=== PATIENT | female | born 1985 | race Caucasian/White ===

== ENCOUNTER 2017-10-04 22:00 | Emergency (ER) | payer BC, MEDICAID, OTHER ==
[~2017-10-04] VITALS: Ht 165.1 cm; Wt 95.0 kg
[~2017-10-04 22:00] MED LIST: SUCR1S PO; Z.0.NO CURRENT MEDS
[2017-10-04 22:12] VITALS: BP 118/58; PULSE 78; RESP 16; TEMP 98.4; O2SAT 98
[2017-10-05] MEDS ORDERED: CHOL5000 PO (02:46)
[2017-10-05] MEDS ORDERED: METH36 PO (02:46)
[2017-10-05] MEDS ORDERED: OMEP20TA93 PO (02:46)
[2017-10-05] MEDS ORDERED: KETOROLAC TROMETHAMINE 60 MG/2 ML (IM) VIAL IM ONE (03:00)
--- NOTE | 2017-10-05 03:01 | RADRPT ---
EXAM DATE/TIME: 10/05/2017 02:54 [place] COMPARISON: No previous studies available for comparison. INDICATIONS : Right foot pain after a barstool fell on foot. MEDICAL HISTORY : None. SURGICAL HISTORY : None. ENCOUNTER: Initial ACUITY: 3 days PAIN SCORE: 6/10 LOCATION: Right foot. FINDINGS: Two view examination of the right foot demonstrates no soft tissue swelling, dislocation, or fracture . The calcaneus is intact. Bony mineralization is normal. CONCLUSION: Plantar calcaneal spur. No acute fracture. Niels Royal MD on October 05, 2017 at 3:00 Board Certified Radiologist. This report was verified electronically.
--- NOTE | 2017-10-05 03:03 | PD ---
HPI Chief Complaint: Musculoskeletal Complaint Time Seen by Provider: 02:48 Travel History International Travel<30 days: No Contact w/Intl Traveler<30days: No Traveled to known affect area: No History of Present Illness HPI 31yo F with no PMH presents to the ED with c/o right foot pain for 3 days. Said 3 chairs fell on her foot when she closed the cupboard and she has been in pain since then. Pt able to ambulate afterwards. Denies any other injuries. Denies any fever, chest pain, sob, n/v, abdominal pain, focal weakness or numbness. PFSH Past Medical History Asthma: Yes ?: Not LMP: 09/03/17 : 1 Para: 0 Past Surgical History Tonsillectomy: Yes Social History Alcohol Use: Yes ([employer]. [employer]) Tobacco Use: No (QUIT 3 YRS AGO. SMOKED 1 PPD FOR 5 YRS) Substance Use: No Allergies-Medications (Allergen,Severity, Reaction): Coded Allergies: No Known Allergies (Verified Allergy, Mild, 07/10/07) Reported Meds & Prescriptions Reported Meds & Active Scripts Active Reported Omeprazole 20 Mg Tab 20 Mg PO DAILY Vitamin D3 (Cholecalciferol) 5,000 Unit Cap 5,000 Units PO DAILY Concerta (Methylphenidate HCl) 36 Mg Nai 36 Mg PO DAILY Review of Systems Except as stated in HPI: all other systems reviewed are Neg Physical Exam Narrative GENERAL: 31yo F in mild distress. SKIN: Focused skin assessment warm/dry. HEAD: Atraumatic. Normocephalic. CARDIOVASCULAR: Regular rate and rhythm. No murmur appreciated. RESPIRATORY: No accessory muscle use. Clear to auscultation. Breath sounds equal bilaterally. GASTROINTESTINAL: Abdomen soft, non-tender, nondistended. MUSCULOSKELETAL: Right foot: DP 2+. +TTP dorsum of 2nd and 3rd metatarsal. + TTP base of fifth metatarsal. NEUROLOGICAL: Awake and alert. No obvious cranial nerve deficits. Motor grossly within normal limits. Normal speech. PSYCHIATRIC: Appropriate mood and affect; insight and judgment normal. Data Data Last Documented VS Vital Signs Date Time Temp Pulse Resp B/P (MAP) Pulse Ox O2 Delivery O2 Flow Rate FiO2 10/04/17 22:12 98.4 78 16 118/58 (78) 98 Orders Orders Foot, Limited (2vws) (10/05/17 ) Ketorolac Inj (Toradol Inj) (10/05/17 03:00) Ed Discharge Order (10/05/17 04:08) [facility] Medical Decision Making Medical Screen Exam Complete: Yes Emergency Medical Condition: Yes Differential Diagnosis Contusion vs. fracture Narrative Course 31yo F with c/o right foot pain s/p chairs falling on it 3 days ago. Pt is able to ambulate. Xray right foot showed plantar calcaneal spur. No acute fracture. Pt given toradol which helped with pain. Pt requesting work note. Return precautions given. Diagnosis Primary Impression: Contusion, foot Qualified Codes: S90.31XA - Contusion of right foot, initial encounter Patient Instructions: General Instructions Departure Forms: Tests/Procedures Additional Instructions: Please follow up with your primary care physician in 3-7 days. Return to the ED if symptoms worsen. Med/Other Pt SpecificInfo: Prescription(s) given Scripts Ibuprofen (Ibuprofen) 600 Mg Tab 600 MG PO Q8HR Y for PAIN, #20 TAB 0 Refills Prov: Ariadne Mccauley DO 10/05/17 Disposition: 01 DISCHARGE HOME Condition: Stable Ariadne Mccauley DO Oct 05, 2017 03:03
[2017-10-05] MEDS ORDERED: IBUP-232 PO (04:12)
[2017-10-05 04:27] VITALS: BP 132/85; TEMP 98.2
== END 2017-10-05 04:29 | disposition home or self-care (01) ==
LOC: PHED 22:00
DX: S90.31XA Contusion of right foot, initial encounter (principal); J45.909 Unspecified asthma, uncomplicated; Z87.891 Personal history of nicotine dependence
CPT/HCPCS: 73620; 96372; 99283; J1885